=== PATIENT | male | born 1985 | race Caucasian/White ===

== ENCOUNTER → 2018-01-14 10:56 | Outpatient (CLI) | payer OTHER, SELFPAY ==
[2018-01-14 12:01] LABS: Absolute Lymphocyte Count 2.69 X10^3/ul (0.83-4.51); Absolute Neutrophil Count 3.4 X10^3/uL (2.0-7.7); Basophil# 0.01 X10^3/uL; Basophil% 0.2 % (0-1); Eosinophil# 0.04 X10^3/uL; Eosinophils% 0.6 % (0-5); Hematocrit 44.1 % (40-54); Hemoglobin 14.9 g/dl (13.0-16.5); Lymphocyte # 2.69 X10^3/ul (4.0); Lymphocyte % 40.7 % (19-41); Mean Corp Hgb Conc 33.8 g/gl (32-36); Mean Corpuscular Hgb 29.3 pg (27.0-32.0); Mean Corpuscular Volume 86.8 fL (80-94); Mean Platelet Vol. 10.4 fl (6.2-12.0); Monocyte# 0.43 X10^3/uL; Monocyte% 6.5 % (0-10); Neutrophil # 3.43 X10^3/uL (2.7-7.7); Neutrophil % 51.8 % (47-70); Platelet Count 281 K/mm3 (150-450); RBC Distribution Width CV 13.1 % (11.6-14.6); RBC Distribution Width SD 40.5 fl (35.1-43.9); Red Blood Count 5.08 M/mm3 (4.6-6.2); White Blood Count 6.6 K/mm3 (4.4-11.0)
[2018-01-14 12:07] LABS: POSITIVE COUNT NO; POSITIVE DIFFERENTIAL NO; POSITIVE MORPHOLOGY NO
[2018-01-14 12:24] LABS: Anion Gap 8 (5-15); BUN 10 mg/dL (7-18); Calcium,Total 8.9 mg/dL (8.5-10.1); Chloride 101 mmol/L (98-107); Creatinine, Serum 0.77 mg/dL (0.70-1.30); EST Glomerular Filtration Rate 123 mL/min (>60); Est Glom Filt Rate - Afr Amer 149 mL/min (>60); Glucose 240 mg/dL (74-106); Potassium 3.6 mmol/L (3.5-5.1); Sodium Level 138 mmol/L (136-145)
[2018-01-14 12:29] LABS: Microalbumin:Creatinine Ratio 49.8 mg/g CRE (<30 mg/g CRE)
== END ==
PROVIDERS: Family Provider Family Medicine; PCP Family Medicine; Visit Provider Family Medicine
DX: E11.9 Type 2 diabetes mellitus without complications (principal)
CPT/HCPCS: 36415; 80048; 82043; 82570; 85025

== ENCOUNTER → 2018-11-04 09:17 | Outpatient (CLI) | payer OTHER, SELFPAY ==
[2018-11-04 12:14] LABS: Absolute Neutrophil Count 3.5 X10^3/uL (2.0-7.7); Basophil# 0.01 X10^3/uL; Basophil% 0.1 % (0-1); Eosinophil# 0.05 X10^3/uL; Eosinophils% 0.7 % (0-5); Hematocrit 40.1 % (40-54); Hemoglobin 13.1 g/dL (13.0-16.5); Mean Corp Hgb Conc 32.7 g/dL (32-36); Mean Corpuscular Hgb 28.8 pg (27.0-32.0); Mean Corpuscular Volume 88.1 fL (80-94); Monocyte# 0.47 X10^3/uL; NRBC Flagged by Analyzer 0 % (0-5); Neutrophil % 51.9 % (47-70); Platelet Count 267 K/mm3 (150-450); RBC Distribution Width CV 12.7 % (11.6-14.6); RBC Distribution Width SD 41.1 fl (35.1-43.9); Red Blood Count 4.55 M/mm3 (4.6-6.2); White Blood Count 6.8 K/mm3 (4.4-11.0)
[2018-11-04 12:32] LABS: Anion Gap 6 (5-15); BUN 12 mg/dL (7-18); BUN/Creat Ratio 16.9 RATIO (10-20); Calcium,Total 8.8 mg/dL (8.5-10.1); Chloride 107 mmol/L (98-107); Creatinine, Serum 0.71 mg/dL (0.70-1.30); EST Glomerular Filtration Rate 134 mL/min (>60); Est Glom Filt Rate - Afr Amer 162 mL/min (>60); Glucose 175 mg/dL (74-106); Potassium 3.9 mmol/L (3.5-5.1); Sodium Level 139 mmol/L (136-145)
== END ==
PROVIDERS: Family Provider Family Medicine; PCP Family Medicine; Visit Provider Family Medicine
DX: E11.65 Type 2 diabetes mellitus with hyperglycemia (principal); E66.01 Morbid (severe) obesity due to excess calories
CPT/HCPCS: 36415; 80048; 85025

== ENCOUNTER → 2019-02-17 11:29 | Outpatient (CLI) | payer OTHER, SELFPAY ==
[2019-02-17 15:44] LABS: Microalbumin,Random Urine 12.7 mg/L (NO RANGE EST.); Microalbumin:Creatinine Ratio 9.4 mg/g CRE (<30 mg/g CRE)
== END ==
PROVIDERS: Family Provider Family Medicine; PCP Family Medicine; Visit Provider Family Medicine
DX: E11.65 Type 2 diabetes mellitus with hyperglycemia (principal)
CPT/HCPCS: 82043; 82570

== ENCOUNTER → 2019-12-16 13:25 | Outpatient (CLI) | payer OTHER, SELFPAY ==
[2019-12-16 15:15] LABS: Absolute Lymphocyte Count 2.98 X10^3/uL (0.83-4.51); Absolute Neutrophil Count 3.8 X10^3/uL (2.0-7.7); Basophil# 0.01 X10^3/uL; Basophil% 0.1 % (0-1); Eosinophil# 0.09 X10^3/uL; Eosinophils% 1.2 % (0-5); Hematocrit 43.1 % (40-54); Hemoglobin 14.3 g/dL (13.0-16.5); Lymphocyte # 2.98 X10^3/ul (4.0); Lymphocyte % 40.2 % (19-41); Mean Corp Hgb Conc 33.2 g/dL (32-36); Mean Corpuscular Hgb 29.4 pg (27.0-32.0); Mean Corpuscular Volume 88.5 fL (80-94); Mean Platelet Vol. 10.2 fl (6.2-12.0); Monocyte# 0.52 X10^3/uL; NRBC Flagged by Analyzer 0 % (0-5); Neutrophil % 51.2 % (47-70); Platelet Count 303 K/mm3 (150-450); RBC Distribution Width CV 12.8 % (11.6-14.6); RBC Distribution Width SD 41.1 fl (35.1-43.9); Red Blood Count 4.87 M/mm3 (4.6-6.2); White Blood Count 7.4 K/mm3 (4.4-11.0)
[2019-12-16 15:52] LABS: BUN 16 mg/dL (7-18); BUN/Creat Ratio 18.9 RATIO (10-20); Creatinine, Serum 0.85 mg/dL (0.70-1.30); EST Glomerular Filtration Rate 109 mL/min (>60); Est Glom Filt Rate - Afr Amer 131 mL/min (>60); Glucose 179 mg/dL (74-106); Protein, Total 8.3 g/dL (6.4-8.2)
[2019-12-16 15:53] LABS: ALB/GLOB Ratio 0.9 RATIO (0.9-2.4); AST(SGOT) 35 U/L (15-37); Alanine Aminotransfer ALT/SGPT 62 U/L (16-61); Alkaline Phosphatase 80 U/L (45-117); Anion Gap 7 (5-15); Calcium,Total 9.6 mg/dL (8.5-10.1); Chloride 104 mmol/L (98-107); Globulin 4.3 g/dL (2.2-4.2); Potassium 3.8 mmol/L (3.5-5.1); Sodium Level 140 mmol/L (136-145); Thyroid Stim Hormone (TSH) 0.77 uIU/mL (0.358-3.74)
== END ==
PROVIDERS: PCP Family Medicine; Visit Provider Family Medicine
DX: E11.9 Type 2 diabetes mellitus without complications (principal); E66.01 Morbid (severe) obesity due to excess calories
CPT/HCPCS: 36415; 80053; 84443; 85025

== ENCOUNTER 2021-03-24 10:57 | Outpatient (CLI) | payer OTHER, SELFPAY ==
[2021-03-24 12:19] LABS: Absolute Lymphocyte Count 3.18 X10^3/uL (0.83-4.51); Absolute Neutrophil Count 3.9 X10^3/uL (2.0-7.7); Basophil# 0.02 X10^3/uL; Basophil% 0.3 % (0-1); Eosinophil# 0.11 X10^3/uL; Eosinophils% 1.4 % (0-5); Hematocrit 45.7 % (40-54); Hemoglobin 15.2 g/dL (13.0-16.5); Lymphocyte # 3.18 X10^3/ul (0.83-4.51); Lymphocyte % 40.5 % (19-41); Mean Corp Hgb Conc 33.3 g/dL (32-36); Mean Corpuscular Hgb 28.6 pg (27.0-32.0); Mean Corpuscular Volume 86.1 fL (80-94); Mean Platelet Vol. 9.9 fl (6.2-12.0); Monocyte# 0.63 X10^3/uL; NRBC Flagged by Analyzer 0 % (0-5); Neutrophil # 3.89 X10^3/uL (2.7-7.7); Neutrophil % 49.5 % (47-70); Platelet Count 327 K/mm3 (150-450); RBC Distribution Width CV 12.9 % (11.6-14.6); Red Blood Count 5.31 M/mm3 (4.6-6.2); White Blood Count 7.9 K/mm3 (4.4-11.0)
[2021-03-24 12:46] LABS: Hemoglobin A1c 9.6 % (3.8-5.6)
[2021-03-24 12:53] LABS: Microalbumin:Creatinine Ratio 24.4 mg/g CRE (<30 mg/g CRE)
[2021-03-24 13:00] LABS: ALB/GLOB Ratio 0.9 RATIO (0.9-2.4); AST(SGOT) 42 U/L (15-37); Alanine Aminotransfer ALT/SGPT 110 U/L (16-61); Albumin, Serum 4.1 g/dL (3.2-5.0); Alkaline Phosphatase 83 U/L (45-117); Anion Gap 5 (5-15); BUN 14 mg/dL (7-18); BUN/Creat Ratio 19.6 RATIO (10-20); Calcium,Total 9.8 mg/dL (8.5-10.1); Chloride 102 mmol/L (98-107); Cholesterol 186 mg/dL (200); Creatinine, Serum 0.72 mg/dL (0.70-1.30); EST Glomerular Filtration Rate 131 mL/min (>60); Est Glom Filt Rate - Afr Amer 159 mL/min (>60); Globulin 4.4 g/dL (2.2-4.2); Glucose 173 mg/dL (74-106); High Density Lipoprotein 49 mg/dL; Potassium 3.8 mmol/L (3.5-5.1); Protein, Total 8.5 g/dL (6.4-8.2); Sodium Level 134 mmol/L (136-145); Thyroid Stim Hormone (TSH) 0.71 uIU/mL (0.358-3.74); Triglycerides 248 mg/dL; Very Low Density Lipoprotein 50 mg/dL (5-40)
== END 2021-03-24 23:59 | disposition short-term general hospital (02) ==
LOC: MFPLAB 10:59
PROVIDERS: PCP Family Medicine; Referring Provider Family Medicine; Visit Provider Family Medicine
DX: E11.9 Type 2 diabetes mellitus without complications (principal)
CPT/HCPCS: 36415; 80053; 80061; 82043; 82570; 83036; 84443; 85025

== ENCOUNTER → 2022-03-09 | Outpatient (CLI) | payer OTHER, SELFPAY ==
[2022-03-09 10:33] LABS: Microalbumin,Random Urine 5.4 mg/L (NO RANGE EST.); Microalbumin:Creatinine Ratio 6.3 mg/g CRE (<30 mg/g CRE)
[2022-03-09 10:59] LABS: ALB/GLOB Ratio 1.1 RATIO (0.9-2.4); AST(SGOT) 34 U/L (15-37); Alanine Aminotransfer ALT/SGPT 61 U/L (16-61); Albumin, Serum 4.2 g/dL (3.2-5.0); Alkaline Phosphatase 75 U/L (45-117); Anion Gap 6 (5-15); BUN 16 mg/dL (7-18); BUN/Creat Ratio 21.2 RATIO (10-20); Calcium,Total 9.4 mg/dL (8.5-10.1); Chloride 101 mmol/L (98-107); Cholesterol 200 mg/dL (200); Creatinine, Serum 0.76 mg/dL (0.70-1.30); EST Glomerular Filtration Rate 122 mL/min (>60); Est Glom Filt Rate - Afr Amer 148 mL/min (>60); Globulin 3.9 g/dL (2.2-4.2); Glucose 206 mg/dL (74-106); High Density Lipoprotein 51 mg/dL; Potassium 4.3 mmol/L (3.5-5.1); Protein, Total 8.1 g/dL (6.4-8.2); Sodium Level 135 mmol/L (136-145); Thyroid Stim Hormone (TSH) 0.77 uIU/mL (0.358-3.74); Triglycerides 136 mg/dL; Very Low Density Lipoprotein 27 mg/dL (5-40)
[2022-03-09 11:04] LABS: Vitamin D,25 Hydroxy 15.2 ng/mL
== END | disposition home or self-care (01) ==
PROVIDERS: PCP Family Medicine; Referring Provider Nurse Practitioner Family; Visit Provider Nurse Practitioner Family
DX: E11.9 Type 2 diabetes mellitus without complications (principal)
CPT/HCPCS: 36415; 80053; 80061; 82043; 82306; 82570; 84443

== ENCOUNTER → 2022-07-05 | Outpatient (CLI) | payer OTHER, SELFPAY ==
[2022-07-05 16:42] LABS: Bacteria 0 SEEN /hpf (None Seen); Mucous, Urine 0 SEEN /hpf (<or=2+); Squamous Epithelial Cells - UA 0 SEEN /hpf (0-5)
[2022-07-05 17:01] LABS: Color, Urine Yellow (Yellow); Glucose, Dipstick 1000 mg/dl (Normal); Ketone-Dipstick 5 mg/dl (Negative); Leukocyte Esterase-Dipstick 25 /ul (Negative); Nitrite-Dipstick Negative (Negative); Occult Blood-Urine 10 /ul (Negative); Protein-Dipstick Negative (Negative); Specific Gravity, Urine 1.015 (1.002-1.030); Urine Bilirubin Dipstick Negative (Negative); Urine Clarity Clear (Clear); Urine Urobilinogen Normal (Normal)
[2022-07-05 17:22] LABS: White Blood Cells 10-25 SEEN /hpf (0-5)
[2022-07-05 17:23] LABS: Red Blood Cells-Urine 0-5 SEEN /hpf (0-5)
== END | disposition home or self-care (01) ==
LOC: LABSPEC 15:40
PROVIDERS: PCP Family Medicine; Referring Provider Physician Assistant; Visit Provider Physician Assistant
DX: R30.0 Dysuria (principal); R35.0 Frequency of micturition
CPT/HCPCS: 81001; 87086; 87088

== ENCOUNTER → 2022-11-28 | Outpatient (CLI) | payer OTHER, SELFPAY ==
[2022-11-28 10:14] LABS: Absolute Lymphocyte Count 2.66 X10^3/uL (0.83-4.51); Absolute Neutrophil Count 3.6 X10^3/uL (2.0-7.7); Basophil# 0.02 X10^3/uL; Basophil% 0.3 % (0-1); Eosinophil# 0.07 X10^3/uL; Hemoglobin 13.7 g/dL (13.0-16.5); Lymphocyte # 2.66 X10^3/ul (0.83-4.51); Lymphocyte % 39.2 % (19-41); Mean Corp Hgb Conc 33.4 g/dL (32-36); Mean Corpuscular Hgb 29.5 pg (27.0-32.0); Mean Corpuscular Volume 88.2 fL (80-94); Mean Platelet Vol. 9.8 fl (6.2-12.0); Monocyte# 0.46 X10^3/uL; Monocyte% 6.8 % (0-10); NRBC Flagged by Analyzer 0 % (0-5); Neutrophil # 3.55 X10^3/uL (2.7-7.7); Neutrophil % 52.4 % (47-70); Platelet Count 285 K/mm3 (150-450); Red Blood Count 4.65 M/mm3 (4.6-6.2); White Blood Count 6.8 K/mm3 (4.4-11.0)
[2022-11-28 10:56] LABS: ALB/GLOB Ratio 0.9 RATIO (0.9-2.4); AST(SGOT) 40 U/L (15-37); Alanine Aminotransfer ALT/SGPT 84 U/L (16-61); Albumin, Serum 3.7 g/dL (3.2-5.0); Alkaline Phosphatase 71 U/L (45-117); Anion Gap 5 (5-15); BUN 12 mg/dL (7-18); BUN/Creat Ratio 17.3 RATIO (10-20); Calcium,Total 8.8 mg/dL (8.5-10.1); Chloride 105 mmol/L (98-107); Cholesterol 157 mg/dL (200); EST Glomerular Filtration Rate 134 mL/min (>60); Est Glom Filt Rate - Afr Amer 163 mL/min (>60); Glucose 182 mg/dL (74-106); High Density Lipoprotein 46 mg/dL; Potassium 3.9 mmol/L (3.5-5.1); Protein, Total 7.7 g/dL (6.4-8.2); Sodium Level 136 mmol/L (136-145); Thyroid Stim Hormone (TSH) 0.73 uIU/mL (0.358-3.74); Triglycerides 144 mg/dL; Very Low Density Lipoprotein 29 mg/dL (5-40)
== END | disposition home or self-care (01) ==
LOC: MTLAB 07:57
PROVIDERS: PCP Family Medicine; Referring Provider Nurse Practitioner Family; Visit Provider Nurse Practitioner Family
DX: E11.9 Type 2 diabetes mellitus without complications (principal)
CPT/HCPCS: 36415; 80053; 80061; 84443; 85025

== ENCOUNTER → 2022-11-29 | Outpatient (CLI) | payer OTHER, SELFPAY ==
[2022-11-29 11:26] LABS: Hepatitis B Surface Antibody Non-Reactive; Hepatitis B Surface Antigen Non-Reactive (Nonreactive); Hepatitis C Antibody Non-Reactive (Nonreactive)
== END | disposition home or self-care (01) ==
LOC: MTLAB 08:42
PROVIDERS: PCP Family Medicine; Referring Provider Family Medicine; Visit Provider Family Medicine
DX: R79.89 Other specified abnormal findings of blood chemistry (principal)
CPT/HCPCS: 36415; 86706; 86803; 87340

== ENCOUNTER → 2022-12-03 | Outpatient (CLI) | payer OTHER, SELFPAY ==
--- NOTE | 2022-12-03 07:55 | US_ITS ---
STUDY: ABDOMINAL ULTRASOUND - RIGHT UPPER QUADRANT REASON FOR VISIT: Male, 37 years old elevated liver enzymes TECHNIQUE: Ultrasound evaluation of the right upper quadrant was performed with real-time and static montanez-scale imaging. TECHNICAL QUALITY: Adequate. COMPARISON: None. FINDINGS: Liver: The liver is enlarged and measures 19 cm. There is increased echogenicity consistent with fatty infiltration. The bile ducts are within normal limits. There is hepatic color flow. The direction of portal flow is hepatopetal. There is no demonstrated mass lesion. Gallbladder: Normal distended gallbladder. The gallbladder wall measures 3.0 mm. There is a negative sonographic Rosas''s sign. There is no pericholecystic fluid. There are no gallstones. Common Bile Duct (C.B.D.): The common bile duct measures 4.0 mm. Pancreas: There is nonvisualization of the pancreas due to overlying bowel gas. Right Kidney: Normal size of the right kidney. The right kidney measures 13.3 cm x 7.1 cm x 5.6 cm. Normal renal cortex. The right cortex measures 2.1 cm. There is no demonstrated renal mass or cyst. There is no right hydronephrosis. US/Liver IMPRESSION: Hepatomegaly and fatty infiltration of the liver. Electronically Signed: Jt Bedoya MD at 9:30 EDT ,
== END | disposition home or self-care (01) ==
PROVIDERS: PCP Family Medicine; Referring Provider Nurse Practitioner Family; Visit Provider Nurse Practitioner Family
DX: R74.8 Abnormal levels of other serum enzymes (principal)
CPT/HCPCS: 76705

== ENCOUNTER → 2023-09-24 | Outpatient (CLI) | payer OTHER, SELFPAY ==
[2023-09-24 10:52] LABS: Hemoglobin A1c 8.1 % (3.8-5.6)
== END | disposition home or self-care (01) ==
LOC: MTLAB 08:31
PROVIDERS: PCP Family Medicine; Referring Provider Nurse Practitioner Family; Visit Provider Nurse Practitioner Family
DX: E11.9 Type 2 diabetes mellitus without complications (principal)
CPT/HCPCS: 36415; 83036

== ENCOUNTER → 2024-01-07 | Outpatient (CLI) | payer OTHER, SELFPAY ==
--- OUTSIDE RECORDS SUMMARY | 2024-01-07 09:05 | XMS RPT_ITS | CCD ---
Author Organization [facility] Inform ion Partnership [facility] Care Team Providers Care Territory Sales Executive Name Role Phone Rc Mojica PA-C Unavailable Jose Aguirre Unavailable [phone] Medications Completed/Discontinued Medications Medication Drug Class(es) Dates Sig (Normalized) Sig (Original) acetaminophen 325 mg oral tablet (2 sources) Start: 09-19-2016 TYLENOL 325 MG CAPS as directed ACETAMINOPHEN [id number] Jose JON cyclobenzaprine hydrochloride 7.5 mg oral tablet (2 sources) Muscle Relaxant Start: 09-19-2016 FEXMID 7.5 MG TABS as directed CYCLOBENZAPRINE HCL [id number] Jose JON Problems Problem Classification Problem Date Documented Da te Episodic/Chronic Unclassified (2 sources) History and physical examination, pre-employment ; Translations: [Encounter for pre-employment examination] Onset: 09-19-2016 09-19-2016 Results Test Name Value Interpretation Reference Range Facility NOVEL CORONAVIRUS NASOPHARYN GEAL - [facility] SPECIMEN ONLYon 02-08-2020 SARS-COV-2 NOT DETECTED Normal NOT DETECTED [facility] Comment on above: Order Comment: Viral transport media - Collection must be done while wearing N-95 mask, eye protection, gown and gloves. Please label ALL specimens as 2019-nCoV rule out and deliver by hand. This test was performed using real time PCR and has been approved for the qualitative detection of SARS-CoV-2 nucleic acid. The test has been authorized by the FDA under an emergency use authorization for use by authorized laboratories. Result Comment: Nega tive results do not preclude SARS-CoV-2 infection and should not be used as the sole basis for treatment or other patient management decisions. Optimum specimen types and timing for peak viral levels during infections caused by SARS-CoV-2 has not been determined. The possibility of a false negative result should especially be considered if the patient's recent exposures or clinical presentation suggest that SARS-CoV-2 infection is probable, and diagnostic tests for other causes of illness (e.g., other respiratory illness) are negative. Collection of a new specimen and re-testing may be necessary if the patient is critically ill or clinically deteriorating. Performed By: #### L [id number] #### [facility] ([facility]) [address] [place] [address] Employer Purchased Services: [employer] 10-05-2016 Documentation of current medications (procedure) Done Invalid Interpretation Code [facility] Work Phone: Fall risk assessment No Invalid Interpretation Code [facility] Work Phone: Tobacco smoking status NHIS Never Invalid Interpretation Code [facility] Work Phone: Tobacco use [facility] Never smoker Invalid Interpretation Code [facility] Work Phone: Employer Purchased Services: [employer] 09-19-2016 Documentation of current medications (procedure) Done Invalid Interpretation Code [facility] Work Phone: Tobacco smoking status NHIS Never Invalid Interpretation Code [facility] Work Phone: Tobacco use [facility] Never smoker Invalid Interpretation Code [facility] Work Phone: Vital Signs Date Time Vital Sign Value Performing Clinician Rolly leslie 10-05-2016 11:09-0400 BMI (Body Mass Index) 39.57 kg/m2 Rc Mojica PA-C [facility] Work Phone: 10-05-2016 11:09-0400 Body Temperature 97.5 [degF] Rc Mojica PA-C [facility] Work Phone: 10-05-2016 11:09-0400 BP Diastolic 92 mm[Hg] Rc Mojica PA-C [facility] Work Phone: 10-05-2016 11:09-0400 BP Systolic 140 mm[Hg] Rc Mojica PA-C [facility] Work Phone: 10-05-2016 11:09-0400 Height 175.26 cm Rc Mojica PA-C [facility] Work Phone: 10-05-2016 11:09-0400 Pulse (Heart Rate) 89 /min Rc Mojica PA-C [facility] Work Phone: 10-05-2016 11:09-0400 Respiratory Rate 16 /min Rc Mojica PA-C [facility] Work Phone: 10-05-2016 11:09-0400 Weight 121.56 kg Rc Mojica PA-C [facility] Work Phone: 09-19-2016 09:12-0400 BMI (Body Mass Index) 39.72 kg/m2 Jose JON [facility] Work Phone: 09-19-2016 09:12-0400 Body Temperature 97.8 [degF] Jose JON [facility] Work Phone: 09-19-2016 09:12-0400 BP Diastolic 86 mm[Hg] Jose JON [facility] Work Phone: 09-19-2016 09:12-0400 BP Systolic 132 mm[Hg] Jose JON [facility] Work Phone: 09-19-2016 09:12-0400 Height 175.26 cm Jose JON [facility] Work Phone: 09-19-2016 09:12-0400 Pulse (Heart Rate) 77 /min Jose JON [facility] Work Phone: 09-19-2016 09:12-0400 Respiratory Rate 16 /min Jose JON [facility] Work Phone: 09-19-2016 09:12-0400 Weight 122.02 kg Jose JON [facility] Work Phone: Procedures Date Procedure Procedure Detail Performing Clinician Start: 09-19-2016 End: 09-19-2016 Pre-employment PE Jose Stovall PA Work Phone: Plan of Treatment Date Care Activity Detail Author Start: 11-02-2016 End: 11-02-2016 Pre-employment PE Pre-employment PE [facility] Work Phone: Start: 09-19-2016 End: 09-19-2016 Appointment Appointment [facility] Work Phone: Summary Purpose Family History No Family History Records Found Advance Directives No Advanced Directives Records Found Additional Source Comments (unrecognized sect ion and content) No Status Records Found INFORMATION SOURCE (unrecogn ized section and content) DATE CREATED AUTHOR 02/10/2020 [facility] FOR RECORDS PERTAINING TO PATIENTS WHO ARE OR HAVE BEEN ENROLLED IN A CHEMICAL DEPENDENCY/SUBSTANCEABUSE PROGRAM, SOME INFORMATION MAY BE OMITTED. This clinical summary was aggregated from multiple sources. Caution should be exercised in using it in the provision of clinical care. This summary normalizes information from multiple sources, and as a consequence, information in this document may materially change the coding, format and clinical context of patient data. In addition, data may be omitted in some cases. CLINICAL DECISIONS SHOULD BE BASED ON THE PRIMARY CLINICAL RECORDS. [employer] provides no warranty or guarantee of the accuracy or completeness of information in this document.
[2024-01-07 10:45] LABS: Vitamin D,25 Hydroxy 30.6 ng/mL
[2024-01-07 10:47] LABS: Microalbumin,Random Urine 11.1 mg/L (NO RANGE EST.); Microalbumin:Creatinine Ratio 6.3 mg/g CRE (<30 mg/g CRE)
[2024-01-07 11:06] LABS: ALB/GLOB Ratio 1.1 RATIO (0.9-2.4); AST(SGOT) 27 U/L (15-37); Alanine Aminotransfer ALT/SGPT 50 U/L (16-61); Albumin, Serum 4.1 g/dL (3.2-5.0); Alkaline Phosphatase 75 U/L (45-117); Anion Gap 7 (5-15); BUN 14 mg/dL (7-18); BUN/Creat Ratio 17.2 RATIO (10-20); Chloride 102 mmol/L (98-107); Cholesterol 121 mg/dL (200); Creatinine, Serum 0.81 mg/dL (0.70-1.30); EST Glomerular Filtration Rate 111 mL/min (>60); Est Glom Filt Rate - Afr Amer 135 mL/min (>60); Globulin 3.7 g/dL (2.2-4.2); Glucose 176 mg/dL (74-106); High Density Lipoprotein 52 mg/dL; Protein, Total 7.8 g/dL (6.4-8.2); Sodium Level 136 mmol/L (136-145); Thyroid Stim Hormone (TSH) 0.677 uIU/mL (0.358-3.740); Triglycerides 73 mg/dL; Very Low Density Lipoprotein 15 mg/dL (5-40)
== END | disposition home or self-care (01) ==
LOC: MTLAB 08:34
PROVIDERS: PCP Family Medicine; Referring Provider Nurse Practitioner Family; Visit Provider Nurse Practitioner Family
DX: E11.65 Type 2 diabetes mellitus with hyperglycemia (principal)
CPT/HCPCS: 36415; 80053; 80061; 82043; 82306; 82570; 84443

== ENCOUNTER → 2024-05-29 | Outpatient (CLI) | payer OTHER, SELFPAY ==
[2024-05-29 11:38] LABS: Hemoglobin A1c 9.4 % (<=5.6)
== END | disposition home or self-care (01) ==
PROVIDERS: PCP Family Medicine; Referring Provider Nurse Practitioner Family; Visit Provider Nurse Practitioner Family
DX: E11.65 Type 2 diabetes mellitus with hyperglycemia (principal)
CPT/HCPCS: 36415; 83036

== ENCOUNTER → 2024-12-29 | Outpatient (CLI) | payer OTHER, SELFPAY ==
--- OUTSIDE RECORDS SUMMARY | 2024-12-29 07:30 | XMS RPT_ITS | CCD ---
Author Organization [facility] CliniSymt Care Team Providers Care Picker Feeder Name Role Phone Rc Mojica PA-C Unavailable Jose Aguirre Unavailable Roseanne LUCAS, Dr. Rivera Stewart Primary Care Provider [phone] Jose SLUBBER MACHINE OPERATOR-C, Eunice Attending Provider Jose SLUBBER MACHINE OPERATORSusanCEunice Referring Provider [phone] Dr. Rivera Cronin MD Referring Provider Eunice Garcia Attending Unavailable Eunice Garcia Referring Unavailable Schleandro, Rivera E Primary Care Unavailable SchRivera reeves Primary Care Unavailable Eunice Garcia Referring Unavailable Eunice Garcia Attending Unavailable Schleandro, Rivera Stewart Primary Care Unavailable Jose, Eunice Attending Unavailable Schinmagui, Rivera E Referring Unavailable Schleandro, Rivera E Primary Care Unavailable Jose, Eunice Attending Unavailable Schleandro, Rivera E Referring Unavailable Schinmagui, Rivera E Primary Care Unavailable Eunice Garcia Attending Unavailable Jose, Eunice Attending Unavailable Schinmagui, Rivera E Primary Care Unavailable Schinmagui, Rivera E Referring Unavailable Schinmagui, Rivera E Primary Care Unavailable Rivera Cronin Referring Unavailable Eunice Garcia Attending Unavailable Jose, Eunice Referring Unavailable SchRivera reeves E Primary Care Unavailable Eunice Garcia Attending Unavailable Medications Current Medications Medication Drug Class(es) Dates Sig (Normalized) Sig (Original) cholecalciferol 0.05 mg oral capsule (3 sources) Vitamin D Start: 08-23-2022 take 1 capsule by mouth once daily Cholecalciferol (Vitamin D3) 50 mcg (2,000 unit) capsule Active 50 ug PO DAILY August 23, 2022 12:00am Start: 03-14-2022 End: 08-23-2022 take 1 capsule by mouth every week Cholecalciferol (Vitamin D3) 1,250 mcg (50,000 unit) capsule Discontinued 1250 ug PO EVERY WEEK March 14, 2022 1:00am August 23, 2022 2:10pm cyclobenzaprine hydrochloride 10 mg oral tablet (5 sources) Muscle Relaxant Start: 09-26-2023 take 1 tablet by mouth every eight hours as needed Cyclobenzaprine 10 mg tablet Active 10 mg PO Q8H as needed September 26, 2023 8:14am Start: 06-10-2020 End: 09-26-2023 Cyclobenzaprine 10 mg tablet Discontinued NMA PO June 10, 2020 12:00am September 26, 2023 8:15am Start: 06-10-2020 Cyclobenzaprin e Active EACH PO June 09, 2020 11:00pm Start: 09-19-2016 FEXMID 7.5 MG TABS as directed CYCLOBENZAPRINE HCL [id number] Jose JON glimepiride 4 mg oral tablet (15 sources) Sulfonylurea Start: 02-06-2023 End: 11-21-2023 take 1 tablet by mouth twice daily Glimepiride 4 mg tablet Active 4 mg PO TWICE A DAY November 21, 2023 8:14am Start: 09-20-2021 End: 02-06-2023 take 1 tablet by mouth once daily Glimepiride 4 mg tablet Discontinued 4 mg PO DAILY 90 October 22, 2022 9:57am February 06, 2023 12:32pm Start: 05-22-2021 End: 09-20-2021 take 2 tablets by mouth once daily Glimepiride 4 mg tablet Discontinued 8 mg PO DAILY 180 May 22, 2021 12:00am September 20, 2021 1:35pm Start: 05-22-2021 End: 09-20-2021 take 8 mg by mouth once daily Glimepiride Discontinued 8 MG PO DAILY May 21, 2021 11:00pm September 20, 2021 12:35pm Start: 06-21-2020 End: 05-22-2021 take 1 tablet by mouth once daily Glimepiride 2 mg tablet Discontinued 2 mg PO DAILY November 15, 2020 2:27pm November 15, 2020 4:10pm lisinopril 20 mg oral tablet (17 sources) Angiotensin Converting Enzyme Inhibitor Start: 05-22-2021 End: 11-21-2023 take 1 tablet by mouth once daily Lisinopril 20 mg tablet Active 20 mg PO DAILY November 21, 2023 8:14am Start: 06-16-2020 End: 05-22-2021 take 1 tablet by mouth once daily Lisinopril 5 mg tablet Discontinued 5 mg PO DAILY November 15, 2020 1:54pm November 15, 2020 4:10pm Start: 06-10-2020 End: 06-16-2020 Lisinopril 2.5 mg tablet Discontinued NMA PO June 10, 2020 12:00am June 16, 2020 10:49am Start: 06-10-2020 End: 06-16-2020 Lisinopril Discontinued EACH PO June 09, 2020 11:00pm June 16, 2020 9:49am Magnesium (2 sources) Start: 09-26-2023 Magnesium 200 mg tablet Active 500 mg PO DAILY September 26, 2023 8:14am Start: 04-25-2022 End: 09-26-2023 take 1 tablet by mouth once daily Magnesium 200 mg tablet Discontinued 200 mg PO DAILY April 25, 2022 1:00am September 26, 2023 8:15am 24 hr metFORMIN hydrochlorid e 500 mg extended release oral tablet (16 sources) Biguanide Start: 04-25-2022 End: 12-30-2023 Metformin 500 mg tablet extended release 24 hr Active 1000 mg PO TWICE A DAY 360 December 30, 2023 9:20am Start: 06-10-2020 End: 06-16-2020 take 1 tablet by mouth every twenty-four hours Metformin 500 mg tablet extended release 24 hr Discontinued NMA PO June 10, 2020 12:00am June 16, 2020 10:49am Start: 06-10-2020 End: 04-25-2022 take 1 tablet by mouth twice daily Metformin 500 mg tablet extended release 24 hr Discontinued 500 mg PO TWICE A DAY 60 November 15, 2020 1:54pm November 15, 2020 4:10pm Multivitamin (Daily Multi-Vitamin) tablet (2 sources) Start: 06-10-2020 Multivitamin ( Daily Multi-Vitamin) tablet Active 1 {tbl} PO DAILY June 10, 2020 12:00am Start: 06-10-2020 take 1 tablet by benedicto th once daily Multivitamin (Daily Multi-Vitamin) tablet Active 1 TABLET PO DAILY June 09, 2020 11:00pm polyethylene glycol 3350 08232 mg powder for oral solution (1 source) Osmotic Laxative Start: 06-01-2024 Polyethylene Glycol 3350 (Miralax) 17 gram/dose powder Active 4 g PO DAILY June 01, 2024 12:00am rosuvastatin calcium 5 mg oral tablet (3 sources) HMG-CoA Reductase Inhibitor Start: 10-22-2022 End: 12-16-2023 take 1 tablet by mouth at bedtime Rosuvastatin 5 mg tablet Active 5 mg PO AT BEDTIME December 16, 2023 9:13am Tirzepatide (Mounjaro) 2.5 mg/0.5 mL pen injector (2 sources) Start: 01-09-2024 Tirzepatide (Mounjaro) 2.5 mg/0.5 mL pen injector Active 2.5 mg SC EVERY WEEK January 09, 2024 1:00am for 4 weeks Start: 10-22-2022 End: 02-06-2023 Tirzepatide (Mounjaro) 2.5 m g/0.5 mL pen injector Discontinued 2.5 mg SC EVERY WEEK 05 01October 22, 2022 12:00am February 06, 2023 12:39pm Completed/Discontinued Medications Medication Drug Class(es) Dates Sig (Normalized) Sig (Original) acetaminophen 325 mg oral tablet (2 sources) Start: 09-19-2016 TYLENOL 325 MG CAPS as directed ACETAMINOPHEN [id number] Jose JON ciprofloxacin 500 mg oral tablet (1 source) Quinolone Antimicrobial Start: 07-05-2022 End: 06-06-2023 take 1 tablet by mouth twice daily Ciprofloxacin Hcl 500 mg tablet Discontinued 500 mg PO TWICE A DAY July 05, 2022 12:00am June 06, 2023 8:09am empagliflozin 25 mg oral tablet (2 sources) Sodium-Glucose Cotransporter 2 Inhibitor Start: 06-10-2020 End: 06-21-2020 take 1 tablet by mouth once daily Empagliflozin (Jardiance) 25 mg tablet Discontinued 25 mg PO DAILY June 10, 2020 12:00am June 21, 2020 11:40am Vitamin B Complex (B Complex-Vitamin B12) tablet (2 sources) Start: 09-20-2021 End: 10-22-2022 Vitamin B Complex (B Complex-Vitamin B12) tablet Discontinued 1 {tbl} PO DAILY September 20, 2021 12:00am October 22, 2022 9:44am Start: 09-20-2021 take 1 tablet by benedicto th once daily Vitamin B Complex (B Complex-Vitamin B12) tablet Active 1 TABLET PO DAILY September 19, 2021 11:00pm Problems Active Problems Problem Classification Problem Date Documented Da te Episodic/Chronic Diabetes mellitus with complications (2 sources) Type 2 diabetes mellitus with hyperglycemia; Translations: [Type 2 diabetes mellitus with hyperglycemia] Onset: 01-29-2024 Chronic Diabetes mellitus without complication (4 sources) Diabetes mellitus; Translations: [Type 2 diabetes mellitus without complications] Onset: 06-01-2024 06-10-2020 Chronic Diabetes mellitus without complication (1 source) Glycosuria; Translations: [Glycosuria] 07-05-2022 Episodic Disorders of lipid metabolism (2 sources) Hyperlipidemia; Translations: [Hyperlipidemia, unspecified] 10-22-2022 Chronic Essential hypertension (4 sources) Essential hypertension; Translations: [Essential (primary) hypertension] 09-20-2021 Chronic Nutritional deficiencies (3 sources) Vitamin D deficiency; Translations: [Vitamin D deficiency, unspecified] 03-14-2022 Chronic Other connective tissue disease (2 sources) Pain of right lower leg; Translations: [Pain in right lower leg] 06-15-2021 Episodic Other gastrointestinal disorders (1 source) Constipation; Translations: [Constipation, unspecified] 06-01-2024 Episodic Other gastrointestinal disorders (1 source) Constipation, unspecified; Translations: [Constipation, unspecified] Onset: 06-01-2024 Episodic Other liver diseases (1 source) Steatosis of liver; Translations: [Fatty (change of) liver, not elsewhere classified] 02-06-2023 Chronic Other liver diseases (1 source) Elevated liver enzymes level; Translations: [Abnormal levels of other serum enzymes] 11-28-2022 Episodic Other nutritional; endocrine; and metabolic disorders (3 sources) Obesity; Translations: [Obesity, unspecified] 06-10-2020 Chronic Sprains and strains (2 sources) Strain of other muscle(s) and tendon(s) of posterior muscle group at lower leg level, right leg, initial encounter; Translations: [Strain of right gastrocnemius muscle] 06-15-2021 Episodic Unclassified (2 sources) History and physical examination, pre-employment ; Translations: [Encounter for pre-employment examination] Onset: 09-19-2016 09-19-2016 Past or Other Problems Problem Classification Problem Date Documented Da te Episodic/Chronic Unclassified (2 sources) benign tumor left side of neck 10-01-2021 Results Test Name Value Interpretation Reference Range Facility Endocrinology Visit Reporton 06-01-2024 Endocrinology Visit Report [facility] [address] [place] [address] OFFICE VISIT Date of Service: 06/01/24 MR#: [id number] Acct: [id number] Name: DOMINIC GARCIA Rep #: [id number] : 1985 Provider: DAVI eng Age/Sex: 38/M Location: [facility] [place] Status: Signed Intake Vital Signs 01/09/24 08:11 06/01/24 08:11 Height 5 ft 9 in 5 ft 9 in Weight: 266 lb 2 oz 268 lb BMI 39.2 39.5 BP 134/84 H 138/82 H Blood Pressure Location Lt brachial Lt brachial Position Sitting Sitting Pulse 86 85 Pulse Source Monitor Monitor Pulse Oximetry (%) 96 97 Oxygen Delivery Method room air room air Intake Visit Reasons: 3 M FU R/S 04/15 Chief Complaint: f/u diabetes Is patient in pain?: No Allergies No Known Allergies Allergy (Verified 06/01/24 08:14) Medications ???Medication ???Instructions ???Recorded ???Confirmed ???Type multivitamin (Daily Multi-Vitamin 1 tablet PO DAILY 06/10/20 History tablet) cholecalciferol (vitamin D3) 50 50 mcg PO DAILY 08/23/22 06/01/24 History mcg (2,000 unit) capsule cyclobenzaprine 10 mg tablet 10 mg PO Q8H PRN 09/26/23 06/01/24 History magnesium 200 mg tablet 500 mg PO DAILY 09/26/23 06/01/24 History glimepiride 4 mg tablet 4 mg PO BID #180 tabs 11/21/23 Rx lisinopril 20 mg tablet 20 mg PO DAILY #90 tabs 11/21/23 0 06/01/24 Rx rosuvastatin 5 mg tablet 5 mg PO QHS #90 tabs 12/16/2305/04 Rx metformin 500 mg tablet,extended 1,000 mg (2 x 500 mg) PO BID #360 12/30/23 06/01/24 Rx release 24 hr tabs tirzepatide 2.5 mg/0.5 mL 2.5 mg (0.5 mL) subcut QWEEK #2 mL 01/09/24 06/01/24 Rx subcutaneous pen injector (Mounjaro) polyethylene glycol 3350 17 4 g PO DAILY #850 grams 06/01/24 0 06/01/24 Rx gram/dose oral powder (Miralax) PFS Medical History Glucosuria Strain of right gastrocnemius muscle Pain in right lower leg Essential hypertension Obesity Vasectomy benign tumor left side of neck Diabetes Family History Other Diabetes Social History Smoking Status: Former smoker alcohol intake: current alcohol intake frequency: holidays/special occasions only what type of physical activity do you participate in: weight training and other details: cardio frequency: 1-2 times per week HPI HPI Chief Complaint: f/u diabetes Details: DOMINIC BAKER, is a 38 M who presents to the office today for evaluation and management of diabetes. A1C on 05/29/24 was 9.4%, increased from 01/09/24 at 8.5%. He has gained 2 lbs since that time. Currently taking glimepiride 4 mg BID, metformin 1 gm BID with food. He was instructed to start Mounjaro 2.5 mg qweek at his last appt, he just started this morning. He does not routinely check his blood sugar. He denies any symptoms of hypoglycemia. He states that his life has been rough recently. He and his both have been working increased hours at work to pay off debt. He admits that he has been making poor dietary choices. BP today is stable. Currently taking lisinopril 20 mg once daily. Taking daily statin. He takes vitamin D3 2,000 iu once daily for hx of deficiency. Labs are up to date. Denies any acute concerns. ROS Const Constitutional: Positive for weight change (gain); No fatigue ENT ENT: No dizziness/vertigo Cardio Cardiology: No chest pain at rest, chest pain with exertion, shortness of breath or palpitations Skin Skin: No wounds Endo Endocrine: Positive for weight change (gain); No fatigue Exam Const General: cooperative, healthy appearing, comfortable and no acute distress Nutritional Appearance: obese Orientation: alert, awake and oriented x3 HENMT Head: normal to inspection Ears: hearing grossly normal bilaterally Nose: external nose normal Face and sinus: normal facial exam Eyes General: appearance normal, both eyes and all related structures Alignment and Position: alignment normal Sclera: sclerae normal Neck Neck: normal visual inspection Chest Chest palpation inspection: normal inspection of the chest Resp Effort Inspection: normal respiratory effort, able to speak in complete sentences, symmetric chest movement, normal respiratory pattern, no audible wheezes and no cough Auscultation: Bilateral: Clear to Auscultation Cardio Rate: regular rate Rhythm: regular rhythm Heart Sounds: S1 normal and S2 normal GI Inspection: obesity Musc Cervical Spine: normal cervical lordosis Thoracic/Lumbar Spine: thoracic and lumbar spine normal to inspection Skin General: no rashes or lesions noted Lesions: no lesion (more content not included)... Normal [facility] Hemoglobin A1con 05-29-2024 HbA1c (Bld) [Mass fraction] 9.4 % Normal <=5.6 [facility] Comment on above: Performed By: #### L [id number] #### [facility] [address] [place], [place], [address] Hemoglobin A1c percentageOrd ered By: Eunice Garcia on 05-29-2024 HbA1c (Bld) [Mass fraction] 9.4 % >5.7 [facility] Endocrinology Visit Reporton 01-09-2024 Endocrinology Visit Report [facility] [address] [place], [place] [address] OFFICE VISIT Date of Service: 01/09/24 MR#: [id number] Acct: [id number] Name: DOMINIC GARCIA Rep #: [id number] : 1985 Provider: DAVI eng Age/Sex: 38/M Location: [facility] [place] Status: Signed Intake Vital Signs 09/26/23 08:12 01/09/24 08:11 Height 5 ft 9 in 5 ft 9 in Weight: 269 lb 266 lb 2 oz BMI 39.7 39.2 BP 136/78 H 134/84 H Blood Pressure Location Lt brachial Lt brachial Position Sitting Sitting Pulse 92 86 Pulse Source Monitor Monitor Pulse Oximetry (%) 97 96 Oxygen Delivery Method room air room air Intake Visit Reasons: 4 M FU Chief Complaint: f/u diabetes Allergies No Known Allergies Allergy (Verified 09/26/23 08:14) Medications ???Medication ???Instructions ???Recorded ???Confirmed ???Type multivitamin (Daily Multi-Vitamin 1 tablet PO DAILY 06/10/20 01/09/24 History tablet) cholecalciferol (vitamin D3) 50 50 mcg PO DAILY 08/23/22 01/09/24 History mcg (2,000 unit) capsule cyclobenzaprine 10 mg tablet 10 mg PO Q8H PRN 09/26/23 01/09/24 History magnesium 200 mg tablet 500 mg PO DAILY 09/26/23 01/09/24 History glimepiride 4 mg tablet 4 mg PO BID #180 tabs 11/21/23 01/09/24 Rx lisinopril 20 mg tablet 20 mg PO DAILY #90 tabs 11/21/23 01/09/24 Rx rosuvastatin 5 mg tablet 5 mg PO QHS #90 tabs 12/16/23 01/09/24 Rx metformin 500 mg tablet,extended 1,000 mg (2 x 500 mg) PO BID #360 12/30/23 01/09/24 Rx release 24 hr tabs tirzepatide 2.5 mg/0.5 mL 2.5 mg (0.5 mL) subcut QWEEK #2 mL 01/09/24 01/09/24 Rx subcutaneous pen injector (Mounjaro) [facility] Medical History Glucosuria Strain of right gastrocnemius muscle Pain in right lower leg Essential hypertension Obesity Vasectomy benign tumor left side of neck Diabetes Family History Other Diabetes Social History Smoking Status: Former smoker alcohol intake: current alcohol intake frequency: holidays/special occasions only what type of physical activity do you participate in: weight training and other details: cardio frequency: 1-2 times per week HPI HPI Chief Complaint: f/u diabetes Details: DOMINIC BAKER, is a 38 M who presents to the office today for evaluation and management of diabetes. A1C today is 8.5%, increased from 09/24/23 at 8.1%. He has lost 3 lbs. Currently taking metformin 1 gm BID and glimepiride 4 mg BID. Reports typical fasting blood sugar ranges from 90-140 depending on his meal the night prior. Denies any blood sugars <70. We have discussed at multiple prior appointments adding insulin to medication regimen as he is not making improvement- he has continued to decline as he because I don't want my body to be dependent on it. He has plans to pursue gastric bypass surgery in [place]. BP stable. Currently taking lisinopril 20 mg once daily. He is taking a daily statin. He saw PCP yesterday. Labs were completed yesterday and largely unremarkable. Denies any acute concerns. ROS Const Constitutional: No fatigue or weight change ENT ENT: No dizziness/vertigo Cardio Cardiology: No chest pain at rest, chest pain with exertion, shortness of breath or palpitations Skin Skin: No wounds Endo Endocrine: No fatigue or weight change Results POC A1C POC A1C 8.5 % Last Edit by Gato Marquez RN on 01/09/24 08:17 Assessment and Plan Assessment and Plan (1) Diabetes: Status: Chronic Qualifiers: Diabetes mellitus type: type 2 Diabetes mellitus snf insulin use: without middle or intermediate school principal use Diabetes mellitus complication status: with hyperglycemia Qualified Code(s): E11.65 - Type 2 diabetes mellitus with hyperglycemia Plan: Chronic- poorly controlled. I reviewed with the patient the risk of developing and worsening of diabetes complications including retinopathy, neuropathy, nephropathy, heart attack, stroke, amputation, and sudden . Diabetes education provided. A1C not at goal: <7.5%. I gave him a voucher and a sample for Mounjaro 2.5 mg qweek- reviewed potential side effects associated with medication. Discussed renal and cardiovascular benefits of medication. Emphasized importance of food volume reduction. Decrease glimepiride to 2 mg BID with addition of Mounjaro. Continue metformin 1 gm BID with food. Notify office of persistently low blood sugars. Recommend weight loss. Ideally addition of Mounjaro will elicit weight loss. I am concerned about him pursuing gastric bypass d/t potential complications. Reviewed most recent labs. The patient was counseled regarding the importan (more content not included)... Normal [facility] Comprehensive Metabolic Prof ilon 01-07-2024 Albumin [Mass/Vol] 4.1 g/dL Normal 3.2-5.0 [facility] Comment on above: Performed By: #### L 500.4050, L501.9520, L506.1000, L500.4100 #### [facility] [address] [place], [address] Albumin/Globulin [Mass ratio] 1.1 {ratio} Normal 0.9-2.4 [facility] Comment on above: Performed By: #### L 500.4050, L501.9520, L506.1000, L500.4100 #### [facility] [address] [place], [address] ALK P 75 U/L Normal 45-117 [facility] Comment on above: Performed By: #### L 500.4050, L501.9520, L506.1000, L500.4100 #### [facility] [address] [place], [address] ALT [Catalytic activity/Vol] 50 U/L Normal 16-61 [facility] Comment on above: Performed By: #### L 500.4050, L501.9520, L506.1000, L500.4100 #### [facility] [address] [place], [address] AST [Catalytic activity/Vol] 27 U/L Normal 15-37 [facility] Comment on above: Performed By: #### L 500.4050, L501.9520, L506.1000, L500.4100 #### [facility] [address] [place], [address] Bilirubin [Mass/Vol] 0.80 mg/dL Normal 0.20-1.00 [facility] Comment on above: Result Comment: For patients on eltrombopag therapy, use of Dimension [place] TBIL is not recommended. Performed By: #### L 500.4050, L501.9520, L506.1000, L500.4100 #### [facility] [address] [place], [address] BUN/CRE 17.2 RATIO Normal 10-20 [facility] Comment on above: Performed By: #### L 500.4050, [id number], L506.1000, L500.4100 #### [facility] [address] [place], [address] CA,Total 9.0 mg/dL Normal 8.5-10.1 [facility] Comment on above: Performed By: #### L 500.4050, L501.9520, L506.1000, L500.4100 #### [facility] [address], [address] Chloride [Moles/Vol] 102 mmol/L Normal 98-107 [facility] Comment on above: Performed By: #### L 500.4050, L501.9520, L506.1000, L500.4100 #### [facility] [address] [place], [address] CO2 [Moles/Vol] 27.0 mmol/L Normal 21.0-32.0 [facility] Comment on above: Performed By: #### L 500.4050, L501.9520, L506.1000, L500.4100 #### [facility] [address] [place], [address] Creatinine [Mass/Vol] 0.81 mg/dL Normal 0.70-1.30 [facility] Comment on above: Result Comment: The validity of the calculated GFR GFRAA in patients over 70 years has not been determined. Clinical correlation is essential. Performed By: #### L 500.4050, L501.9520, L506.1000, L500.4100 #### [facility] [address] [place], [address] EST GFR - AA 135 mL/min Normal >60 [facility] Comment on above: Result Comment: Afri can Australian GFR Calc Performed By: #### L 500.4050, L501.9520, L506.1000, L500.4100 #### [facility] [address] [place], [address] GAP 7 Normal 5-15 [facility] Comment on above: Performed By: #### L 500.4050, L501.9520, L506.1000, L500.4100 #### [facility] [address] [place], [address] GFR/1.73 sq M.predicted among non-blacks MDRD (S/P/Bld) [Vol rate/Area] 111 mL/min/{1.73_m2} Normal >60 [facility] Comment on above: Result Comment: Non- GFR Calc Performed By: #### L 500.4050, L501.9520, L506.1000, L500.4100 #### [facility] [address] [place], [address] Globulin (S) [Mass/Vol] 3.7 g/dL Normal 2.2-4.2 [facility] Comment on above: Performed By: #### L 500.4050, L501.9520, L506.1000, L500.4100 #### [facility] [address] [place], [address] Glucose [Mass/Vol] 176 mg/dL High 74-106 [facility] Comment on above: Result Comment: Fast ing Glucose result greater than or equal to 126 mg/dL suggests DIABETES MELLITUS per A.D.A. criteria. Performed By: #### L 500.4050, L501.9520, L506.1000, L500.4100 #### [facility] [address] [place], [address] Potassium [Moles/Vol] 4.0 mmol/L Normal 3.5-5.1 [facility] Comment on above: Performed By: #### L 500.4050, L501.9520, L506.1000, L500.4100 #### [facility] [address] [place], [address] Sodium [Moles/Vol] 136 mmol/L Normal 136-145 [facility] Comment on above: Performed By: #### L 500.4050, [id number], L506.1000, L500.4100 #### [facility] [address] [place], [address] T PROT 7.8 g/dL Normal 6.4-8.2 [facility] Comment on above: Performed By: #### L 500.4050, L501.9520, L506.1000, L500.4100 #### [facility] [address] [place], [address] Urea nitrogen [Mass/Vol] 14 mg/dL Normal 7-18 [facility] Comment on above: Performed By: #### L 500.4050, L501.9520, L506.1000, L500.4100 #### [facility] [address] [place], [address] Lipid Profileon 01-07-2024 Cholesterol [Mass/Vol] 121 mg/dL Normal 200 [facility] Comment on above: Result Comment: <200 mg/dL Desirable 200-240 mg/dL Borderline >240 mg/dL High Risk Performed By: #### L 500.4050, L501.9520, L506.1000, L500.4100 #### [facility] [address] [place], [address] Cholesterol in HDL [Mass/Vol] 52 mg/dL Normal [facility] Comment on above: Result Comment: The drugs N-Acetylcysteine and Metamizole may falsely depress this assay. Reference Range HDL <40 mg/dL Low HDL Cholesterol HDL >or= 60 mg/dL High HDL Cholesterol Performed By: #### L 500.4050, L501.9520, L506.1000, L500.4100 #### [facility] [address] [place], [address] Cholesterol in LDL [Mass/Vol] 54 mg/dL Normal 0-130 [facility] Comment on above: Performed By: #### L 500.4050, L501.9520, L506.1000, L500.4100 #### [facility] [address] [place], [address] Cholesterol in VLDL [Mass/Vol] 15 mg/dL Normal 5-40 [facility] Comment on above: Performed By: #### L 500.4050, L501.9520, L506.1000, L500.4100 #### [facility] [address] [place], [address] Triglyceride [Mass/Vol] 73 mg/dL Normal [facility] Comment on above: Result Comment: The drugs N-Acetylcysteine and Metamizole may falsely depress this assay. Serum Triglycerides Reference Interval Normal <150 mg/dL Borderline high 150 - 199 mg/dL High 200 - 499 mg/dL Very High > or = 500 mg/dL Performed By: #### L 500.4050, L501.9520, L506.1000, L500.4100 #### [facility] [address] [place], [address] Microalb:Creat Ratio,Random URon 01-07-2024 Creatinine [Mass/Vol] 176.00 mg/dL Normal NO RANGE EST . [facility] Comment on above: Performed By: #### L 502.0250 #### [facility] [address] [place], [address] MALB:CRE 6.3 mg/g CRE Normal <30 mg/g CRE [facility] Comment on above: Performed By: #### L 502.0250 #### [facility] [address] [place], [address] MICROALBUMIN,UR 11.1 mg/L Normal NO RANGE EST. [facility] Comment on above: Performed By: #### L 502.0250 #### [facility] [address] [place], [address] Thyroid Stim Hormone (TSH)on 01-07-2024 TSH 0.677 uIU/mL Normal 0.358-3.740 [facility] Comment on above: Performed By: #### L 500.4050, L501.9520, L506.1000, L500.4100 #### [facility] [address] [place], [address] Vitamin D,25 Hydroxyon 01-06 Vitamin D 25-OH 30.6 ng/mL Normal [facility] Comment on above: Result Comment: Elena min D 25(OH) Status Range Deficiency <20 ng/mL (50nmol/L) Insufficiency 20 - 30 ng/mL (50 - 75 nmol/L) Sufficiency 30 - 100 ng/mL (75 - 250 nmol/L) Toxicity >100 ng/mL (>250 nmol/L) Performed By: #### L 500.4050, L501.9520, L506.1000, L500.4100 #### [facility] [address] [place], [address] Endocrinology Visit Reporton 09-26-2023 Endocrinology Visit Report [facility] [address] [place] [address] OFFICE VISIT Date of Service: 09/26/23 MR#: [id number] Acct: [id number] Name: DOMINIC GARCIA Rep #: [id number] : 1985 Provider: DAVI eng Age/Sex: 38/M Location: [facility] [place] Status: Signed Intake Vital Signs 06/06/23 08:13 09/26/23 08:12 Height 5 ft 9 in 5 ft 9 in Weight: 270 lb 2 oz 269 lb BMI 39.9 39.7 BP 137/82 H 136/78 H Blood Pressure Location Lt brachial Lt brachial Position Sitting Sitting Respiration 15 Pulse 78 92 Pulse Source NIBP Monitor Temp 98.7 F Temp Source Temporal Pulse Oximetry (%) 96 97 Oxygen Delivery Method room air room air Intake Visit Reasons: 4 M FU Chief Complaint: f/u diabetes Grades 1 6 Tutor Required: No Accompanied by: Self Is patient in pain?: No Allergies No Known Allergies Allergy (Verified 09/26/23 08:14) Medications ???Medication ???Instructions ???Recorded ???Confirmed ???Type multivitamin (Daily Multi-Vitamin 1 tablet PO DAILY 06/10/20 09/26/23 History tablet) cholecalciferol (vitamin D3) 50 50 mcg PO DAILY 08/23/22 09/26/23 History mcg (2,000 unit) capsule lisinopril 20 mg tablet 20 mg PO DAILY #90 tabs 10/22/22 09/26/23 Rx metformin 500 mg tablet,extended 1,000 mg (2 x 500 mg) PO BID #360 10/22/22 09/26/23 Rx release 24 hr tabs rosuvastatin 5 mg tablet 5 mg PO QHS #90 tabs 06/28/23 09/26/23 Rx glimepiride 4 mg tablet 4 mg PO BID #180 tabs 09/23/23 09/26/23 Rx cyclobenzaprine 10 mg tablet 10 mg PO Q8H PRN 09/26/23 09/26/23 History magnesium 200 mg tablet 500 mg PO DAILY 09/26/23 09/26/23 History PFSH Medical History Glucosuria Strain of right gastrocnemius muscle Pain in right lower leg Essential hypertension Obesity Vasectomy benign tumor left side of neck Diabetes Family History Other Diabetes Social History Smoking Status: Former smoker alcohol intake: current alcohol intake frequency: holidays/special occasions only what type of physical activity do you participate in: weight training and other details: cardio frequency: 1-2 times per week HPI HPI Chief Complaint: f/u diabetes Details: DOMINIC BAKER, is a 38 M who presents to the office today for evaluation and management of diabetes. A1C earlier this week was 8.1%, improved slightly from 06/06/23 at 8.5%. He has lost 1 lb. Currently taking metformin 1 gm BID with food and glimepiride 4 mg BID. He did not bring glucometer/blood sugar log for review; however, he denies any blood sugars <70. He admits that he has been off track with his diet for quite some time. 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 We have discussed initiating insulin at previous appointments, he does not wish to do so. BP stable. Currently taking lisinopril 20 mg once daily. He has fatty liver disease. Currently taking rosuvastatin 5 mg once daily. Hx of vitamin D deficiency. He takes vitamin D3 2,000 iu once daily. Denies any acute concerns. ROS Const Constitutional: Positive for other (ROS negative x10 body systems) Exam Const General: cooperative, healthy appearing, comfortable and no acute distress Nutritional Appearance: obese Orientation: alert, awake and oriented x3 HENMT Head: normal to inspection Ears: hearing grossly normal bilaterally Nose: external nose normal Face and sinus: normal facial exam Eyes General: appearance normal, both eyes and all related structures Alignment and Position: alignment normal Sclera: sclerae normal Neck Neck: normal visual inspection Carotids: normal carotid upstroke Chest Chest palpation inspection: normal inspection of the chest Resp Effort Inspection: normal respiratory effort, able to speak in complete sentences, symmetric chest movement, normal respiratory pattern, no audible wheezes and no cough Auscultation: Bilateral: Clear to Auscultation Cardio Rate: regular rate Rhythm: regular rhythm Heart Sounds: S1 normal and S2 normal Bruits: no carotid bruits GI Inspection: normal to inspection and obesity Musc Cervical Spine: normal cervical lordosis Thoracic/Lumbar Spine: thoracic and lumbar spine normal to inspection Skin General: no rashes or lesions noted Lesions: no lesions Rashes: no rashes Trauma: no lacerations or abrasions Wounds: no wounds Neuro General: patient alert, patient awake and patient oriented x3 Cognition: normal cognition Speech: speech normal Gait: normal gait Extrem General: yeny (more content not included)... Normal [facility] Hemoglobin A1con 09-24-2023 HbA1c (Bld) [Mass fraction] 8.1 % High 3.8-5.6 [facility] Comment on above: Result Comment: Norm al < 5.7 % Prediabetic 5.7 - 6.4 % Diabetic >or= 6.5 % Please note range changes. Performed By: #### L 501.9985 #### [facility] [address] [place], [place], [address] Endocrinology Visit Reporton 06-06-2023 Endocrinology Visit Report [facility] [address] [place], [place] [address] OFFICE VISIT Date of Service: 06/06/23 MR#: [id number] Acct: [id number] Name: DOMINIC GARCIA Rep #: [id number] : 1985 Provider: DAVI eng Age/Sex: 37/M Location: [facility] [place] Status: Signed Intake Vital Signs 02/06/23 11:06 06/06/23 08:13 Height 5 ft 9 in 5 ft 9 in Weight: 267 lb 270 lb 2 oz BMI 39.4 39.9 BP 128/82 H 137/82 H Blood Pressure Location Lt brachial Lt brachial Position Sitting Sitting Respiration 16 15 Pulse 72 78 Pulse Source Monitor NIBP Temp 98.7 F 98.7 F Temp Source Temporal Temporal Pulse Oximetry (%) 97 96 Oxygen Delivery Method room air room air Intake Visit Reasons: 4 M FU Chief Complaint: f/u diabetes Grades 1 6 Tutor Required: No Is patient in pain?: No Allergies No Known Allergies Allergy (Verified 06/06/23 08:09) Medications cyclobenzaprine 10 mg tablet ea PO 06/10/20 [History Confirmed 06/06/23] multivitamin (Daily Multi-Vitamin tablet) 1 tablet PO DAILY 06/10/20 [History Confirmed 06/06/23] magnesium 200 mg tablet 200 mg PO DAILY 04/25/22 [History Confirmed 06/06/23] cholecalciferol (vitamin D3) 50 mcg (2,000 unit) capsule 50 mcg PO DAILY 08/23/22 [History Confirmed 06/06/23] lisinopril 20 mg tablet 20 mg PO DAILY #90 tabs 10/22/22 [Rx Confirmed 06/06/23] metformin 500 mg tablet,extended release 24 hr 1,000 mg (2 x 500 mg) PO BID #360 tabs 10/22/22 [Rx Confirmed 06/06/23] rosuvastatin 5 mg tablet 5 mg PO QHS #90 tabs 10/22/22 [Rx Confirmed 06/06/23] glimepiride 4 mg tablet 4 mg PO BID #180 tabs 02/06/23 [Rx Confirmed 06/06/23] PFSH Medical History benign tumor left side of neck Diabetes Essential hypertension Glucosuria Obesity Pain in right lower leg Strain of right gastrocnemius muscle Vasectomy Family History Other Diabetes Social History Smoking Status: Former smoker alcohol intake: current alcohol intake frequency: holidays/special occasions only what type of physical activity do you participate in: weight training and other details: cardio frequency: 1-2 times per week HPI HPI Chief Complaint: f/u diabetes Details: DOMINIC BAKER, is a 37 M who presents to the office today for evaluation and management of diabetes. A1C today is 8.5%, improved slightly from 02/06/23 at 8.9%. He has gained 3 lbs. Currently taking metformin 1 gm BID with food and glimepiride 4 mg BID. He denies any blood sugars <70. He admits that his diet contains a significant amount of low fiber carbohydrates. Unfortunately, GLP-1s are cost prohibitive. He refuses insulin as he is fearful that if I start insulin my body wont produce it naturally. He has plans to pursue bariatric surgery in [place] as it is more cost effective than in [place]. BP today is stable at 137/82. Currently taking lisinopril 20 mg once daily. Hx of fatty liver and elevated cholesterol. Currently takes rosuvastatin 5 mg QHS. Hx of vitamin D deficiency. He is compliant with supplementation. Complains of issues with ongoing diarrhea. He has appt to discuss further with PCP at upcoming appointment. Labs are up to date. Exam Const General: cooperative, healthy appearing, comfortable and no acute distress Nutritional Appearance: obese Orientation: alert, awake and oriented x3 HENMT Head: normal to inspection Ears: hearing grossly normal bilaterally Nose: external nose normal Face and sinus: normal facial exam Eyes General: appearance normal, both eyes and all related structures Alignment and Position: alignment normal Sclera: sclerae normal Neck Neck: normal visual inspection Carotids: normal carotid upstroke Chest Chest palpation inspection: normal inspection of the chest Resp Effort Inspection: normal respiratory effort, able to speak in complete sentences, symmetric chest movement, normal respiratory pattern, no audible wheezes and no cough Auscultation: Bilateral: Clear to Auscultation Cardio Rate: regular rate Rhythm: regular rhythm Heart Sounds: S1 normal and S2 normal Bruits: no carotid bruits GI Inspection: normal to inspection and obesity Musc Cervical Spine: normal cervical lordosis Thoracic/Lumbar Spine: thoracic and lumbar spine normal to inspection Skin General: no rashes or lesions noted Lesions: no lesions Rashes: no rashes Trauma: no lacerations or abrasions Wounds: no wounds Neuro General: patient alert, patient awake and patient oriented x3 Cognition: normal cognition Speech: speech normal Gait: normal gait Extrem General: normal to inspection and no pedal edema (more content not included)... Normal [facility] Basophil percentageOrdered B y: Eunice Garcia on 03-09-2022 Bilirubin [Mass/Vol] 0.40 mg/dL 0.20-1.00 [facility] Comment on above: For patients on eltr ombopag therapy, use of Dimension [place] TBIL is not recommended. Chloride [Moles/Vol] 101 mmol/L 98-107 [facility] Cholesterol [Mass/Vol] 200 mg/dL <200 [facility] Comment on above: <200 mg/dL Desirable 200-240 mg/dL Borderline >240 mg/dL High Risk Glucose [Mass/Vol] 206 mg/dL 74-106 [facility] Comment on above: Glucose result great er than or equal to 200 mg/dLsuggests DIABETES MELLITUS per A.D.A. criteria. Potassium [Moles/Vol] 4.3 mmol/L 3.5-5.1 [facility] Protein [Mass/Vol] 8.1 g/dL 6.4-8.2 [facility] Sodium [Moles/Vol] 135 mmol/L 136-145 [facility] Triglyceride [Mass/Vol] 136 mg/dL <199 [facility] Comment on above: The drugs N-Acetylcy steine and Metamizole may falsely depress this assay.Serum Triglycerides Reference Interval Normal <150 mg/dL Borderline high 150 - 199 mg/dL High 200 - 499 mg/dL Very High > or = 500 mg/dL Laboratory - Chemistry and C hemistry - challengeOrdered By: Eunice Garcia on 03-09-2022 ALP [Catalytic activity/Vol] 75 U/L 45-117 [facility] ALT [Catalytic activity/Vol] 61 U/L 16-61 [facility] CO2 [Moles/Vol] 28.0 mmol/L 21.0-32.0 [facility] Globulin (S) [Mass/Vol] 3.9 g/dL 2.2-4.2 [facility] Urea nitrogen/Creatinine [Mass ratio] 21.2 mg/mg 10-20 [facility] No Panel InformationOrdered By: Eunice Garcia on 03-09-2022 Estimated GFR (MDRD) Amer 148 mL/min >60 [facility] Comment on above: GFR Calc Estimated GFR (MDRD) Non-Af Amer 122 mL/min >60 [facility] Comment on above: Non- GFR Calc Thyroid Stimulating Hormone (TSH) 0.77 uIU/mL 0.358-3.74 [facility] Urine Microalbumin/Creatinin e Ratio 6.3 mg/g CRE <30 [facility] Vitamin D 25-Hydroxy 15.2 ng/mL [facility] Comment on above: Vitamin D 25(OH) Sta tus Range Deficiency <20 ng/mL (50nmol/L) Insufficiency 20 - 30 ng/mL (50 - 75 nmol/L) Sufficiency 30 - 100 ng/mL (75 - 250 nmol/L) Toxicity >100 ng/mL (>250 nmol/L) Serum or plasma albumin alyssia urement (mass/volume)Ordered By: Eunice Garcia on 03-09-2022 Albumin [Mass/Vol] 4.2 g/dL 3.2-5.0 [facility] Serum or plasma albumin/glob ulin mass ratioOrdered By: Eunice Garcia on 03-09-2022 Albumin/Globulin [Mass ratio] 1.1 {ratio} 0.9-2.4 [facility] Serum or plasma calcium alyssia urement (mass/volume)Ordered By: Eunice Garcia on 03-09-2022 Calcium [Mass/Vol] 9.4 mg/dL 8.5-10.1 [facility] Serum or plasma cholesterol in HDL measurement (mass/volume)Ordered By: Eunice Garcia on 03-09-2022 Cholesterol in HDL [Mass/Vol] 51 mg/dL >40 [facility] Comment on above: The drugs N-Acetylcy steine and Metamizole may falsely depress this assay. Reference Range HDL <40 mg/dL Low HDL Cholesterol HDL >or= 60 mg/dL High HDL Cholesterol Serum or plasma cholesterol in VLDL measurement (mass/volume)Ordered By: Eunice Garcia on 03-09-2022 Cholesterol in VLDL [Mass/Vol] 27 mg/dL 5-40 [facility] Serum or plasma creatinine m easurement (mass/volume)Ordered By: Eunice Garcia on 03-09-2022 Creatinine [Mass/Vol] 0.76 mg/dL 0.70-1.30 [facility] Comment on above: The validity of the calculated GFR & GFRAA in patients over 70 years has not been determined. Clinical correlation is essential. Serum or plasma low density lipoprotein (LDL) cholesterol measurement (mass/volume)Ordered By: Eunice Garcia on 03-09-2022 Cholesterol in LDL [Mass/Vol] 122 mg/dL 0-130 [facility] Serum or plasma urea nitroge n measurement (mass/volume)Ordered By: Eunice Garcia on 03-09-2022 Urea nitrogen [Mass/Vol] 16 mg/dL 7-18 [facility] Thin prep Papanicolaou smear with manual screeningOrdered By: Eunice Garcia on 03-09-2022 Thin prep Papanicolaou smear with manual screening 34 U/L 15-37 [facility] Thin prep Papanicolaou smear with manual screening 6 5-15 [facility] Thin prep Papanicolaou smear with manual screening 5.4 mg/L NO RANGE EST. [facility] Urine creatinine measurement (mass/volume)Ordered By: Eunice Garcia on 03-09-2022 Creatinine (U) [Mass/Vol] 87.00 mg/dL NO RANGE EST. [facility] NOVEL CORONAVIRUS NASOPHARYN GEAL - [facility] SPECIMEN ONLYon 02-08-2020 SARS-COV-2 NOT DETECTED Normal NOT DETECTED [facility] Comment on above: Order Comment: Viral [...] or clinically deteriorating. Performed By: #### L [id number] #### [facility] ([facility]) [address] [place] [address] Employer Purchased Services: [facility] 10-05-2016 Documentation of current medications (procedure) Done Invalid Interpretation Code [facility] Work Phone: Fall risk assessment No Invalid Interpretation Code [facility] Work Phone: Tobacco smoking status NHIS Never Invalid Interpretation Code [facility] Work Phone: Tobacco use HS Never smoker Invalid Interpretation Code [facility] Work Phone: Employer Purchased Services: [facility] [employer] 09-19-2016 Documentation of current medications (procedure) Done Invalid Interpretation Code [facility] Work Phone: Tobacco smoking status NHIS Never Invalid Interpretation Code [facility] Work Phone: Tobacco use HS Never smoker Invalid Interpretation Code [facility] Work Phone: Vital Signs Date Time Vital Sign Value Performing Clinician Faci lity 06-01-2024 08:11-0400 Body height 175.[address] Rivera Cronin MD Work Phone: [facility] 06-01-2024 08:11-0400 Body mass index (BMI) [Ratio] 39.5 kg/m2 Dr. Rivera Cronin MD Work Phone: [facility] 06-01-2024 08:11-0400 Body weight 121.[address] Rivera Cronin MD Work Phone: [facility] 06-01-2024 08:11-0400 Diastolic blood pressure 82 mm[Hg] Dr. Rivera Cronin MD Work Phone: [facility] 06-01-2024 08:11-0400 Heart rate 85 /min Dr. Rivera Cronin MD Work Phone: [facility] 06-01-2024 08:11-0400 SaO2% (BldA) [Mass fraction] 97 % Dr. Rivera Cronin MD Work Phone: [facility] 06-01-2024 08:11-0400 Systolic blood pressure 138 mm[Hg] Dr. Rivera Cronin MD Work Phone: [facility] 10-05-2016 11:09-0400 BMI (Body Mass Index) 39.57 kg/m2 Rc Mojica PA-C [facility] Work Phone: 10-05-2016 11:09-0400 Body Temperature 97.5 [degF] Rc Billingsleyak PA-C [facility] Work Phone: 10-05-2016 11:09-0400 BP Diastolic 92 mm[Hg] Rc Billingsleyak PA-C [facility] Work Phone: 10-05-2016 11:09-0400 BP Systolic 140 mm[Hg] Rc Billingsleyak PA-C [facility] Work Phone: 10-05-2016 11:09-0400 Height 175.26 cm Rc Billingsleyak PA-C [facility] Work Phone: 10-05-2016 11:09-0400 Pulse (Heart Rate) 89 /min Rc Billingsleyak PA-C [facility] Work Phone: 10-05-2016 11:09-0400 Respiratory Rate 16 /min Rc Billingsleyak PA-C [facility] Work Phone: 10-05-2016 11:09-0400 Weight 121.56 kg Rc Mojica PA-C [facility] Work Phone: 09-19-2016 09:12-0400 BMI (Body Mass Index) 39.72 kg/m2 Jose JON [facility] Work Phone: 09-19-2016 09:12-0400 Body Temperature 97.8 [degF] Jose JON [facility] Work Phone: 09-19-2016 09:12-0400 BP Diastolic 86 mm[Hg] Jose JON [facility] Work Phone: 09-19-2016 09:12-0400 BP Systolic 132 mm[Hg] Jose JON [facility] Work Phone: 09-19-2016 09:12-0400 Height 175.26 cm Jose JON [facility] Work Phone: 09-19-2016 09:12-0400 Pulse (Heart Rate) 77 /min Jose JON [facility] Work Phone: 09-19-2016 09:12-0400 Respiratory Rate 16 /min Jose JON [facility] Work Phone: 09-19-2016 09:120400 Weight 122.02 kg Jose JON 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 -[facility] Work Phone: Start: 05-29-2024 End: 05-29-2024 ambulatory Eunice Jose Facility:[facility] Start: 01-09-2024 End: 01-09-2024 ambulatory Rivera Cronin Facility:[facility] Start: 01-07-2024 End: 01-07-2024 ambulatory [facility] E Roseanne Facility:[facility] Start: 09-26-2023 End: 09-26-2023 ambulatory Rivera Cronin Facility:[facility] Start: 09-24-2023 End: 09-24-2023 ambulatory Eunice Jose Facility:[facility] Start: 06-06-2023 End: 06-06-2023 ambulatory Eunice Jose Facility:[facility] Start: 03-09-2022 End: 03-09-2022 ambulatory [facility] Work Phone: Start: 03-09-2022 End: 03-09-2022 Patient encounter procedure [facility] Procedures Date Procedure Procedure Detail Performing Clinician Start: 09-19-2016 End: 09-19-2016 Pre-employment PE Jose JON Work Phone: Vasectomy Vasectomy Plan of Treatment Date Care Activity Detail Author Start: 11-02-2016 End: 11-02-2016 Pre-employment PE Pre-employment PE [facility] Work Phone: Start: 09-19-2016 End: 09-19-2016 Appointment Appointment [facility] Work Phone: Payers Date Payer Category Payer Unknown [id number] 2023 Self-pay [id number] Private Health Insurance [facility] [id number] Unknown ANTHMONIKA [id number] Unknown [facility] CINDI [id number] Unknown [id number] Unknown [id number] Unknown [id number] Unknown [id number] Unknown [id number] Unknown [id number] Unknown [id number] Unknown [id number] Social History Date Type Detail Facility Start: [facility]21 [facility] Start: 1985 Sex Assigned At Male [facility] Start: 06-06-2023 [facility] Start: 06-02-2024 Sex Male (finding) [facility] Evaluation note 06-01-2024 Note Date & Type Note Facility 06-01-2024 Evaluation note Diagnosis Onset Date Resolution Diabetes chronic June 01 8:09am Essential hypertension chronic [facility] 2024 8:09am Hyperlipidemia chronic May 8:09am Obesity chronic June 01 8:09am Vitamin D deficiency chronic [facility] 2024 8:09am [facility] Work Phone: Evaluation note Note Date & Type Note Facility Evaluation note No assessment information availa ble [facility] Work Phone: Reason for referral (narrative) Note Date & Type Note Facility Reason for referral (narrative) No reason for referral information available [facility] Work Phone: Summary Purpose Family History No Family History Records Found Relationship Condition Age at Onset Recorded Date/T patsy Not Specified Diabetes mellitus Unknown Advance Directives No Advanced Directives Records FoundNo Advanced Directives Records Found Chief Complaint and Reason for Visit Chief Complaint Admit Date EORDER May 29, 2024 7:2 0am 3 M FU R/S 04/15June 01, 2024 8:0 9am Reason for Visit Admit Date Diabetes June 01, 2024 8:0 9am Essential hypertension June 01, 2024 8:09am Hyperlipidemia June 01, 2024 8:0 9am Obesity June 01, 2024 8:0 9am Vitamin D deficiency June 01, 2024 8: 09am Additional Source Comments (unrecognized sect ion and content) No Status Records FoundNo Status Records Found INFORMATION SOURCE (unrecogn ized section and content) DATE CREATED AUTHOR 02/10/2020 [facility] DATE CREATED AUTHOR AUTHOR'S ORGANIZ ATION 06/03/[address] [facility] Care Teams (unrecognized sec tion and content) Team Status: Active Member Role Status Dates Dr. Manuelito Elliott MD Family Provider Active Dr. Rivera Cronin MD Primary Care Provider Active Team Status: Inactive Member Role Status Dates Dr. Rivera Cronin MD Primary Care Provider Active DAVI Bird Attending Provider, Referring Pr marcello Active Team Status: Active Member Role Status Dates Dr. Rivera Cronin MD Primary Care Provider Active Team Status: Inactive Member Role Status Dates Dr. Rivera Cronin MD Primary Care Provider Active Start: May 29, 2024 End: May 29, 2024 DAVI Bird Attending Provider Active Start: May 29, 2024 End: May 29, 2024 DAVI Bird Referring Provider Active Start: May 29, 2024 End: May 29, 2024 Team Status: Inactive Member Role Status Dates Dr. Rivera Cronin MD Primary Care Provider Active Start: June 01, 2024 End: June 01, 2024 Dr. Rivera Cronin MD Referring Provider Active Start: June 01, 2024 End: June 01, 2024 DAVI Bird Attending Provider Active Start: June 01, 2024 End: June 01, 2024 Goals (unrecognized section and content) Goals may be documented in a n alternate sectionGoals may be documented in an alternate section FOR RECORDS PERTAINING TO PATIENTS WHO ARE [...] BE BASED ON THE PRIMARY CLINICAL RECORDS. [employer] [facility]. provides no warranty or guarantee of the accuracy or completeness of information in this document.
[2024-12-29 09:52] LABS: Hematocrit 39.2 % (40-54); Hemoglobin 13.1 g/dL (13.0-16.5); Immature Granulocytes Count 0.010 X10^3/uL (0.0-0.0); Mean Corp Hgb Conc 33.4 g/dL (32-36); Mean Corpuscular Volume 88.3 fL (80-94); Mean Platelet Vol. 9.5 fl (6.2-12.0); NRBC Flagged by Analyzer 0 % (0-5); Platelet Count 281 K/mm3 (150-450); RBC Distribution Width CV 13.2 % (11.6-14.6); RBC Distribution Width SD 42.5 fl (35.1-43.9); Red Blood Count 4.44 M/mm3 (4.6-6.2); White Blood Count 7.8 K/mm3 (4.4-11.0)
[2024-12-29 10:36] LABS: AST(SGOT) 20 U/L (<=37); Alanine Aminotransfer ALT/SGPT 31 U/L (<=46); Albumin, Serum 4.3 g/dL (3.5-5.0); Alkaline Phosphatase 66 U/L (40-129); Anion Gap 10 (5-15); BUN 20 mg/dL (4-19); BUN/Creat Ratio 27.8 RATIO (10-20); Calcium,Total 9.6 mg/dL (7.6-11.0); Carbon Dioxide 23.6 mmol/L (21.0-32.0); Chloride 103 mmol/L (98-108); Cholesterol 130 mg/dL (<=200); Globulin 3.0 g/dL (2.2-4.2); Glucose 197 mg/dL (70-99); Low Density Lipoprotein Calc. 56 mg/dL; Potassium 4.2 mmol/L (3.3-5.1); Triglycerides 146 mg/dL; Very Low Density Lipoprotein 29 mg/dL (5-40); Vitamin D,25 Hydroxy 28.9 ng/mL (30-100); cholesterol:hdl ratio screen 2.65
[2024-12-29 10:41] LABS: Creatinine, Urine (random) 131.00 mg/dL (39.00-259.00); Microalbumin,Random Urine < 12.0 mg/L (<20 mg/L)
== END | disposition home or self-care (01) ==
LOC: MTLAB 07:23
PROVIDERS: Referring Provider Internal Medicine Endocrinology, Diabetes & Metabolism; Visit Provider Internal Medicine Endocrinology, Diabetes & Metabolism
DX: I10 Essential (primary) hypertension (principal); E11.65 Type 2 diabetes mellitus with hyperglycemia; E78.5 Hyperlipidemia, unspecified; E03.9 Hypothyroidism, unspecified; E55.9 Vitamin D deficiency, unspecified
CPT/HCPCS: 36415; 80053; 80061; 82043; 82306; 82570; 83036; 84443; 85025